=== PATIENT | female | born 1960 | race Caucasian/White ===

== ENCOUNTER 2020-03-27 17:02 | Emergency (ER) | payer BC, SELFPAY ==
[2020-03-27 17:30] VITALS: BP 149/94; PULSE 96; RESP 18; TEMP 36.7; O2SAT 98; BMI 30.9
--- NOTE | 2020-03-27 17:40 | XRR_ITS ---
PROCEDURE INFORMATION: Exam: XR Lumbosacral Spine, 2 or 3 Views Exam date and time: 03/27/2020 6:15 PM Age: 59 years old Clinical indication: Low back pain and lumbago with sciatica; Bilateral; Patient HX: C/O lbp w sciatica TECHNIQUE: Imaging protocol: XR of the lumbosacral spine, 2 or 3 views. COMPARISON: No relevant prior studies available. FINDINGS: Vertebrae: There is mild diffuse right convexity of the lumbar spine. There is anterolisthesis at L4-L5 due to facet laxity. There are no anterior wedging deformities. Lower lumbar facet arthropathy is noted. Soft tissues: Normal. XR/XR lumbar spine 2-3V* [id number] IMPRESSION: L4-L5 anterolisthesis due to facet laxity.
--- NOTE | 2020-03-27 17:42 | W.ED.BACK ---
HPI - Back Pain/Injury General: Chief Complaint: Back Pain/Injury Stated Complaint: back and hip pain Time Seen by Provider: 03/27/20 17:28 Source: patient Mode of arrival: ambulatory Limitations: no limitations History of Present Illness: HPI Narrative: 59-year-old female who has a history of chronic low back pain states she has had lumbar pain over the last week. She was seen and started on prednisone for 3 days and states that it had minimal help. States it radiates down her right hip. She states she has had back pain for years it seems to flareup at times. She denies any bowel or bladder incontinence. She states her pain is sharp in nature. MD elicited complaint: back pain Pertinent past history: prior back pain Onset (ago): day(s) Timing: constant Severity: moderate Quality: sharp Location: lumbar spine Radiation: right upper leg Exacerbating factors: movement Relieving factors: immobilization Associated symptoms: Deny abdominal pain, chills, dysuria, fever(s), nausea or vomiting Review of Systems Const: Denies: fever(s), chills, body aches or change in appetite Eyes: Denies: blurry vision or eye discomfort ENMT: Denies: throat pain or dental pain Card: Denies: chest pain Resp: Denies: dyspnea GI: Denies: abdominal pain, nausea, vomiting or diarrhea : Denies: dysuria Musc: Reports: back pain; Denies: neck pain Skin/Breast: Denies: rash Neuro: Denies: headache(s) Psych: Denies: depression Biju/Lymph: Denies: easy bruising All/Imm: Denies: urticaria PFS ED PFSH: Social History (Updated 03/23/20 @ 11:13 by Rebeca Meza LPN) Smoking and tobacco status: never smoked Physical Exam Const: COMMON NORMALS: no acute distress, patient oriented x3 and healthy appearing HENMT: COMMON NORMALS: normocephalic and atraumatic HEAD & SCALP: normocephalic and atraumatic Eye: COMMON NORMALS: Equal, round and reactive pupils present and EOMs intact bilaterally PUPIL: Yes Equal, round and reactive pupils present Neck/C-Spine: COMMON NORMALS: full ROM and supple Chest: COMMONS NORMALS: normal inspection of the chest and normal palpation of entire chest wall Resp: COMMON NORMALS: normal respiratory effort, No retractions, No use of accessory muscles and clear to auscultation bilaterally AUSCULTATION: clear to auscultation bilaterally Cardio: COMMON NORMALS: regular rate, regular rhythm and No murmurs present (Cardio) RATE: regular rate RHYTHM: regular rhythm GI: COMMON NORMALS: Normal to inspection, nondistended, normoactive bowel sounds present, Soft to palpation, non-tender and no masses PALPATION: Yes Soft to palpation Back/Pelvis: OTHER: Tenderness over right lower back with no midline tenderness. No weakness in extremities. No saddle anesthesia. Extremity: COMMON NORMALS: normal to inspection and full ROM Neuro: COMMON NORMALS: patient oriented x3, moves all extremities and no focal motor deficits Psych: COMMON NORMALS: mental status grossly normal, Normal thought process present and cooperative THOUGHT PROCESS: Normal thought process present Skin: COMMON NORMALS: no rashes or lesions noted and no wounds GENERAL SKIN EXAM: no rashes or lesions noted Course Vital Signs: Vital signs: Vital Signs Temperature 98.0 F 03/27/20 17:30 Pulse Rate 96 03/27/20 17:30 Respiratory Rate 18 03/27/20 18:17 Blood Pressure 149/94 03/27/20 17:30 Pulse Oximetry 98 03/27/20 17:30 MDM - Back Pain/Injury MDM Narrative: Medical decision making narrative: Patient presents with low back pain with sciatica. Patient has no signs of epidural abscess or cord compression. She has no saddle anesthesia. We will place her on Medrol Dosepak and have her follow-up with Dr. Patiño. She is to return if worsening. She understands and agrees to plan. Imaging Data^: X-ray lumbar spine: Attestation: I personally reviewed and interpreted this imaging study as follows: My impression: No acute abnormality Discharge Plan Discharge Patient Disposition: Home, Self-Care Clinical Impression: Low back pain with right-sided sciatica Qualifiers: Chronicity: acute Back pain laterality: right Qualified Code(s): M54.41 - Lumbago with sciatica, right side Condition: Stable Prescriptions: New Naprosyn 500 mg tablet 500 mg PO BID PRN (Reason: pain) Qty: 20 RF: 0 Medrol (Donnie) 4 mg tablets,dose pack See Rx Instructions .ROUTE .COMPLEX Qty: 21 RF: 0 No Action prednisone 20 mg tablet 20 mg PO DAILY PRNRF: 0 cyclobenzaprine 10 mg tablet 10 mg PO TID PRN (Reason: muscle spasm) Qty: 30 RF: 0 Discharge Orders: Discharge Order (Routine); Ordered 03/27/20 Ordered By: Manuelito Ovalle Referrals: Halina Robison MD [Primary Care Provider] - Ganesh Patiño MD [Physician] - 1-3 days Discharge Diet: Advance as tolerated Discharge Activity: Resume usual activity Patient Instructions: Acute Low Back Pain (ED) Coding Level of Care Code ED Telecommunication Equipment Repairer for Chg Fwd Exam Comprehensive
[2020-03-27] MEDS: predniSONE 20 mg Tablet 60 MG PO (18:16)
[2020-03-27 18:17] VITALS: RESP 18
[2020-03-27] MEDS: morphine 4 mg/mL SDV 1 mL IM (18:17)
[2020-03-27] MEDS: diazePAM 5 mg Tablet PO (19:03)
[2020-03-27 20:14] VITALS: BP 132/82; PULSE 78; RESP 18; O2SAT 98
--- NOTE | 2020-03-31 11:17 | DCPLANNER ---
Addendum entered by Jannie Miranda 04/01/20 09:41: Herminio from Dr. Castro office called child welfare caseworker, informing child welfare caseworker that a follow up appointment has been scheduled for patient for Monday, April 06, 2020 at 8:00 with Germaine Mckeon. Clinic called patient with appointment information. Original Note: television station manager had message to schedule a follow up appointment for patient with Dr. Patiño. television station manager called [facility], spoke with Coleen, gave clinic patients information. television station manager was told that patients information would be printed and given to Herminio for review. Clinic will call child welfare caseworker and patient with appointment information.
--- NOTE | 2020-04-17 12:47 | DCPLANNER ---
Patient did attend appointment scheduled for 04.06.20 with office.
== END 2020-03-27 20:16 | disposition home or self-care (01) ==
PROVIDERS: Emergency Provider Emergency Medicine; PCP Family Medicine
DX: M54.41 Lumbago with sciatica, right side (principal)
CPT/HCPCS: 12345; 72100; 96372; 99281; 99283; J2270; J7512

== ENCOUNTER 2020-04-08 13:08 | Outpatient (CLI) | payer BC, SELFPAY ==
--- NOTE | 2020-04-08 13:00 | MR_ITS ---
WS: [id number] MRI LUMBAR SPINE NONCONTRAST HISTORY: Instability and pain. COMPARISON: None available. TECHNIQUE: Sagittal and axial multisequence imaging is submitted. Mild increase in thoracic kyphosis. Facet joint arthritis at T10 encroaching upon the posterior theca l sac greatest on the RIGHT. L4 anterolisthesis by 2 mm. No acute marrow edema or fracture. Vertebral body heights are normal. No significant disc space narrowing and desiccation. Disc spaces and vertebral body heights are well-preserved. Conus terminates normally at T12. L1-L2: Normal. L2-L3: Mild annular disc bulging without stenosis. Mild ligamentum flavum hypertrophy. L3-L4: Mild annular disc bulging with ligamentum flavum hypertrophy and facet arthritis. Small amount of fluid in the LEFT facet joint. Very mild narrowing of the foramen. L4-L5: Mild annular disc bulging with ligamentum flavum hypertrophy and facet arthritis. Fluid in the facet joints bilaterally. Bilateral moderate subarticular recess stenosis and mild foraminal stenosi s. L5-S1: Very mild annular disc bulging and small osteophytes with mild facet arthritis. Very minimal e ncroachment upon the LEFT S1 nerve root in the subarticular recess. Paravertebral soft tissues are negative. MR/MR lumbar spine wo con* [id number] IMPRESSION: 1. L4 anterolisthesis by 2 mm. 2. Moderate bilateral subarticular recess stenosis and mild foraminal stenosis at L4-5. Moderate encroachment upon the L5 nerve roots. 3. Very minimal encroachment upon the LEFT S1 nerve root.
--- NOTE | 2020-04-08 14:50 | XR_ITS ---
WS: [id number] Lumbar spine with flexion, extension, and neutral lateral, 04/08/2020 Clinical Data: LOW BACK PAIN Comparison: Lumbar spine, 03/27/2020 Findings: There is a 0.5 cm anterolisthesis of L4 on L5. There is minimal anterior osteoarthritis from L3 throu gh L5. On flexion and extension there is no change in the anterolisthesis. No limitation of motion is noted. XR/XR lumbar spine f/e only [id number] Impression: 1. Anterolisthesis of L4 on L5 which does not change on flexion or extension. 2. Minimal osteoarthritic change from L3 through L5.
== END 2020-04-08 13:09 | disposition home or self-care (01) ==
LOC: RADSHAW 13:14
PROVIDERS: PCP Nurse Practitioner Family; Visit Provider Licensed Practical Nurse
DX: M54.5 Low back pain (principal); M48.061 Spinal stenosis, lumbar region without neurogenic claudication
CPT/HCPCS: 72120; 72148

== ENCOUNTER → 2020-06-02 08:33 | Outpatient (BNVA) | payer BC, SELFPAY | PROVIDERS: PCP Nurse Practitioner Family; Referring Provider Licensed Practical Nurse; Visit Provider Anesthesiology Pain Medicine | DX: M51.17 Intervertebral disc disorders with radiculopathy, lumbosacral region (principal); M47.816 Spondylosis without myelopathy or radiculopathy, lumbar region; M54.9 Dorsalgia, unspecified; M62.830 Muscle spasm of back; Z79.891 Long term (current) use of opiate analgesic | CPT/HCPCS: 99204 ==

== ENCOUNTER → 2020-06-15 12:43 | Outpatient (BNVA) | payer BC, SELFPAY | PROVIDERS: PCP Nurse Practitioner Family; Visit Provider Anesthesiology Pain Medicine | DX: M51.17 Intervertebral disc disorders with radiculopathy, lumbosacral region (principal); M54.9 Dorsalgia, unspecified; Z79.891 Long term (current) use of opiate analgesic | CPT/HCPCS: 64483; 64484; J1040; J3490 ==

== ENCOUNTER → 2020-06-29 12:41 | Outpatient (BNVA) | payer BC, SELFPAY | PROVIDERS: PCP Nurse Practitioner Family; Visit Provider Anesthesiology Pain Medicine | DX: M47.816 Spondylosis without myelopathy or radiculopathy, lumbar region (principal); M54.9 Dorsalgia, unspecified; M54.41 Lumbago with sciatica, right side | CPT/HCPCS: 64493; 64494; 64495; J3490 ==

== ENCOUNTER → 2020-07-13 10:36 | Outpatient (BNVA) | payer BC, SELFPAY | PROVIDERS: PCP Nurse Practitioner Family; Visit Provider Anesthesiology Pain Medicine | DX: M51.17 Intervertebral disc disorders with radiculopathy, lumbosacral region (principal); M47.816 Spondylosis without myelopathy or radiculopathy, lumbar region; M54.9 Dorsalgia, unspecified; M62.830 Muscle spasm of back | CPT/HCPCS: 99213 ==

== ENCOUNTER → 2020-08-03 13:57 | Outpatient (BNVA) | payer BC, SELFPAY | PROVIDERS: PCP Nurse Practitioner Family; Visit Provider Anesthesiology Pain Medicine | DX: M47.816 Spondylosis without myelopathy or radiculopathy, lumbar region (principal); M54.9 Dorsalgia, unspecified; M51.17 Intervertebral disc disorders with radiculopathy, lumbosacral region; M62.830 Muscle spasm of back | CPT/HCPCS: 64493; 64494; 64495; 99212; J1040; J3490 ==

== ENCOUNTER → 2020-08-20 10:56 | Outpatient (BNVA) | payer BC, SELFPAY | PROVIDERS: PCP Nurse Practitioner Family; Visit Provider Anesthesiology Pain Medicine | DX: M47.816 Spondylosis without myelopathy or radiculopathy, lumbar region (principal); M51.17 Intervertebral disc disorders with radiculopathy, lumbosacral region; M54.9 Dorsalgia, unspecified; M62.830 Muscle spasm of back | CPT/HCPCS: 99213; 99214 ==

== ENCOUNTER → 2020-08-24 13:46 | Outpatient (BNVA) | payer BC, SELFPAY | PROVIDERS: PCP Nurse Practitioner Family; Visit Provider Anesthesiology Pain Medicine | DX: M47.816 Spondylosis without myelopathy or radiculopathy, lumbar region (principal); M54.9 Dorsalgia, unspecified | CPT/HCPCS: 64493; 64494; 64495; J3490 ==

== ENCOUNTER → 2020-09-08 09:52 | Outpatient (BNVA) | payer BC, SELFPAY | PROVIDERS: PCP Nurse Practitioner Family; Visit Provider Anesthesiology Pain Medicine | DX: M47.816 Spondylosis without myelopathy or radiculopathy, lumbar region (principal); M51.17 Intervertebral disc disorders with radiculopathy, lumbosacral region; M54.9 Dorsalgia, unspecified; M62.830 Muscle spasm of back | CPT/HCPCS: 99212; 99213 ==

== ENCOUNTER 2020-11-04 14:05 | Outpatient (CLI) | payer BC, SELFPAY ==
--- NOTE | 2020-11-04 14:12 | MM_ITS ---
WS: [id number] BILATERAL SCREENING DIGITAL MAMMOGRAM WITH CAD HISTORY: SCREENING COMPARISON: 09/17/2014 Bilateral CC and MLO views submitted. Computer aided detection analyzed. Breast composition: The breasts are heterogeneously dense, which may obscure small masses. No suspici ous masses, microcalcifications or architectural distortion. Benign calcifications in each breast. MM/[place] [id number] IMPRESSION: BI-RADS: 2-Benign FOLLOW UP: 1 Year Follow-up
== END 2020-11-04 14:06 | disposition home or self-care (01) ==
LOC: RADSHAW 14:09
PROVIDERS: PCP Nurse Practitioner Family; Visit Provider Nurse Practitioner Family
DX: Z12.31 Encounter for screening mammogram for malignant neoplasm of breast (principal)
CPT/HCPCS: 77067

== ENCOUNTER → 2020-11-19 13:10 | Outpatient (BNVA) | payer BC, SELFPAY | PROVIDERS: PCP Nurse Practitioner Family; Visit Provider Anesthesiology Pain Medicine | DX: M54.9 Dorsalgia, unspecified (principal); M51.17 Intervertebral disc disorders with radiculopathy, lumbosacral region; M47.816 Spondylosis without myelopathy or radiculopathy, lumbar region; M62.830 Muscle spasm of back | CPT/HCPCS: 99213; 99214 ==

== ENCOUNTER → 2020-11-27 14:02 | Outpatient (BNVA) | payer BC, SELFPAY | PROVIDERS: PCP Nurse Practitioner Family; Visit Provider Anesthesiology Pain Medicine | DX: M47.816 Spondylosis without myelopathy or radiculopathy, lumbar region (principal); M54.9 Dorsalgia, unspecified | CPT/HCPCS: 64635; 64636; J1030 ==

== ENCOUNTER → 2020-12-22 12:58 | Outpatient (BNVA) | payer BC, SELFPAY | PROVIDERS: PCP Nurse Practitioner Family; Visit Provider Anesthesiology Pain Medicine | DX: M47.816 Spondylosis without myelopathy or radiculopathy, lumbar region (principal); M54.9 Dorsalgia, unspecified | CPT/HCPCS: 64635; 64636; J1030 ==

== ENCOUNTER → 2021-02-16 09:58 | Outpatient (BNVA) | payer BC, SELFPAY | PROVIDERS: PCP Nurse Practitioner Family; Visit Provider Anesthesiology Pain Medicine | DX: M54.9 Dorsalgia, unspecified (principal); M51.17 Intervertebral disc disorders with radiculopathy, lumbosacral region; M47.816 Spondylosis without myelopathy or radiculopathy, lumbar region; M62.830 Muscle spasm of back | CPT/HCPCS: 99214 ==

== ENCOUNTER → 2021-03-01 12:29 | Outpatient (BNVA) | payer BC, SELFPAY | PROVIDERS: PCP Nurse Practitioner Family; Visit Provider Anesthesiology Pain Medicine | DX: M54.16 Radiculopathy, lumbar region (principal); M54.9 Dorsalgia, unspecified; Z79.891 Long term (current) use of opiate analgesic | CPT/HCPCS: 64483; 64484; J1100; J3490 ==

== ENCOUNTER → 2021-03-11 08:44 | Outpatient (BNVA) | payer BC, SELFPAY | PROVIDERS: PCP Nurse Practitioner Family; Visit Provider Anesthesiology Pain Medicine | DX: M51.17 Intervertebral disc disorders with radiculopathy, lumbosacral region (principal); M47.816 Spondylosis without myelopathy or radiculopathy, lumbar region; M54.9 Dorsalgia, unspecified; M62.830 Muscle spasm of back | CPT/HCPCS: 99214 ==

== ENCOUNTER → 2021-04-21 10:25 | Outpatient (BNVA) | payer BC, SELFPAY | PROVIDERS: PCP Nurse Practitioner Family; Visit Provider Anesthesiology Pain Medicine | DX: M79.18 Myalgia, other site (principal); M25.552 Pain in left hip; M51.17 Intervertebral disc disorders with radiculopathy, lumbosacral region; M47.816 Spondylosis without myelopathy or radiculopathy, lumbar region; M54.9 Dorsalgia, unspecified | CPT/HCPCS: 20553; 99214; J1030; J3490 ==

== ENCOUNTER → 2021-05-06 10:54 | Outpatient (BNVA) | payer BC, SELFPAY | PROVIDERS: PCP Nurse Practitioner Family; Visit Provider Orthopaedic Surgery | DX: Z01.812 Encounter for preprocedural laboratory examination (principal); Z20.822 Contact with and (suspected) exposure to COVID-19 | CPT/HCPCS: 87635 ==

== ENCOUNTER 2021-05-10 05:48 | Day surgery (SDC) | payer BC, SELFPAY ==
[2021-05-06 12:21] VITALS: BMI 31.3
--- NOTE | 2021-05-06 12:55 | ANES.PREANE2 ---
Pre-Anesthetic Assessment Pre-Anesthetic Assessment: Height/Weight: Height 1.6 m Weight 80.286 kg Proposed Procedure: Operation Date: 05/10/21 14:40 Proposed Procedures p Lumbar Spine Decompression 56997 M43.10(Not Applicable) - Rafita Pierre, DO Was Beta Luna taken within 24 hours: N/A Was Clonidine taken within 24 hours: N/A Social: Social History: No alcohol and No tobacco Exam: Pre-Anes Outpt Exam: alert, oriented x 3, clear to auscultation bilaterally and regular rate & rhythm Airway: Submandibular: WNL Cervical ROM: WNL MP: 2 Pulmonary: Pulmonary: None reported CV/HEM: CV/HEM: None reported : : None reported Hepatic: Hepatic: None reported GI: GI: None reported Metabolic: Metabolic: None reported Musc/skel: Musc/skel: Lower Back Pain Comments: LBP radiating to left leg Neuropsych: Neuropsych: None reported Anesthetic Plan: ASA status: 2 Anesthesia: General Other: Patient had protracted sore throat and difficulty with swallowing following anesthesia for oupatient surgery. Discussed using glidescope with staff and patient. PFSH Anesthesia PFSH: Medical History Intervertebral disc disorder with radiculopathy of lumbosacral region Joint instability Surgical History History of eye surgery lens replacement; left eye Dr. Seals, then laser surgery to remove scar tissue History of hysterectomy Family History Mother CAD (coronary artery disease) Breast cancer Aneurysm Sister Aneurysm Social History Smoking and tobacco status: never smoked Second hand smoke exposure: No Alcohol intake: never Household members: spouse Marital status: Current occupational status: employed Current occupation: cosmotology History of recent travel: No Data Anesthesia Cardiac Studies: No Data to Display
[2021-05-10] VITALS (9 sets, daily range): BP systolic 123–157; BP diastolic 68–100; PULSE 60–84; RESP 12–19; TEMP 36.1–36.9; O2SAT 96–100
--- NOTE | 2021-05-10 | SCC_ITS ---
Procedure Done: 1. Bilateral L4/5 laminectomy with partial facetectomy 9.0 seconds of fluoroscopic guidance, for a cumulative dose of 2.34 mGy, was provided to Dr. Pierre by the radiology department. C-arm images of the lumbar spine were saved for the patient's permanent record. [facility]
[2021-05-10] MEDS: sodium chloride 0.9% 1,000 ML 30 ML IV (06:25)
--- NOTE | 2021-05-10 06:40 | PM.HP ---
Providers/Chief Complaint Primary Care Provider: KHADRA Avina Chief Complaint: sponylolthesis lumbar History of Present Illness Viktoria Cosby is a 60 year old female low back pain. Onset: [gradually worsen over time] Duration: [years] Characteristics: [sharp] Severity: [moderate] Location: [left side low back] Radiating symptoms: [left lateral thigh and posterior lower leg] Aggravating factors: [standing, walking, bending] Alleviating factors: [sitting, heat] Neuro deficits: denies numbness, tingling, weakness, incontinence of bowel/bladder, saddle anesthesia. Prior tx: [pain management for injection and nerve ablations, formal PT, oral anti-inflammatories, muscle relaxers, narcotic pain medication] Review of Systems Narrative: Const: Denies: fever(s) or chills Card: Denies: chest pain or dyspnea on exertion Resp: Denies: dyspnea or productive cough GI: Denies: abdominal pain, nausea or vomiting : Denies: difficulty voiding Musc: Reports: back pain, extremity pain and limited range of motion Skin/Breast: Denies: changes in skin color or dry skin Neuro: Denies: numbness in extremities or weakness in extremities Psych: Denies: anxiety Biju/Lymph: Denies: easy bruising or easy bleeding Medications/Allergies Home Medications Medication Instructions Recorded Confirmed Last Taken Type ibuprofen 200 mg tablet 300 mg PO .2 Q 4 hours PRN tab 11/27/20 05/10/21 05/10/21 04:50 History tizanidine 4 mg tablet 4 mg PO BID PRN #60 tab 04/21/21 05/10/21 05/09/21 Rx Allergies Allergy/AdvReac Type Severity Reaction Status Date / Time No Known Allergies Allergy Verified 05/10/21 06:12 PFSH Acute PFSH: Medical History Intervertebral disc disorder with radiculopathy of lumbosacral region Joint instability Surgical History History of eye surgery lens replacement; left eye Dr. Seals, then laser surgery to remove scar tissue History of hysterectomy Family History Mother CAD (coronary artery disease) Breast cancer Aneurysm Sister Aneurysm Social History Smoking and tobacco status: never smoked Second hand smoke exposure: No Alcohol intake: never Household members: spouse Marital status: Current occupational status: employed Current occupation: cosmotology History of recent travel: No Vitals/I&O/Wt Last Vital Signs Temp 98.4 F 05/10/21 06:13 Pulse 65 05/10/21 06:13 Resp 18 05/10/21 06:13 BP 141/68 05/10/21 06:13 Pulse Ox 96 05/10/21 06:13 Physical Exam Narrative: EXAM NARRATIVE: EXAM NARRATIVE: CONSTITUTIONAL: The patient is normal appearing, well groomed, cooperative and in no apparent distress. GENERAL: Patient in no acute distress. Well nourished. CARDIAC: Regular rate and rhythm. CHEST: Normal inspirator effort, normal respiratory rate. ABDOMEN: Soft and non-tender. SKIN: Clear, warm and intact. NEURO?PSYCH: The patient is alert and oriented to person, place and time. NEUROVASCULAR: Upper Extremity Sensory - SILT. Motor Strength: Shoulder abduction C5: 5/5; Wrist extension C6: 5/5; Elbow extension C7: 5/5; Hand Opto Mechanical Technician C8: 5/5; Finger abduction T1: 5/5. Radial/ Ulnar/ Median in intact Lower Extremity Sensory - SILT. Motor Strength: Hip flexion L2/3; Ant/inner thigh: 5/5; Hip adduction L2/3: 5/5; Knee extension L4 Lat thigh: 5/5; Toe dorsiflexion L5: 5/5; Ankle dorsiflexion L5/ S1: 5/5; Plantar flexion S1: 5/5. DTR: Triceps 2+; Brachioradialis 2+; Patellar 2+; Achilles 2+. MUSCULOSKELETAL: UPPER EXTREMITIES: The patient had full active ROM in fingers, wrist, elbow, and shoulder. The patient demonstrated ability to fully flex/extend/abduct/adduct fingers, make ok sign, cross 2nd/3rd digits, extend 1st digit fully.. Radial pulse 2+, CR<2 seconds. LOWER EXTREMITIES: Pt has full, active ROM of toes, ankle, knee, and hip. Dorsalis pedis & posterior tibialis pulses 2+, CR<2 seconds. SPINE: Skin warm, dry, intact. A&P Assessment and plan (1) Spondylosis of lumbar spine: MIS decompression Status: Acute Attestations Medical Necessity Statement*: failed conservative tx Coding Level of Care Code Acute Cigar Head Piercer for Chg Fwd Diagnoses Spondylosis of lumbar spine M47.816
--- NOTE | 2021-05-10 07:37 | P.ANESUD_ITS ---
Pre-Anesthetic Update Pre-Anesthetic Assessment: Date of Surgery/Procedure: 05/10/21 Preop Anabel gnosis: Lumbar stenosis Proposed Procedure: Operation Date: 05/10/21 07:00 Proposed Procedures p Lumbar Spine Decompression 59668 M43.10(Not Applicable) - Rafita Pierre, DO Any changes to Pre-Anesthetic Assessment?: No Last Intake: Intake Last Liquid Date 05/09/21 Last Liquid Time 22:00 Last Solid Date 05/09/21 Last Solid Time 19:30 Vitals: Temperature 98.4 F 05/10/21 06:13 Pulse Rate 65 05/10/21 06:13 Respiratory Rate 18 05/10/21 06:13 Blood Pressure 141/68 05/10/21 06:13 Blood Pressure April n 92 05/10/21 06:13 Pulse Oximetry 96 05/10/21 06:13 Oxygen Delivery Me thod 05/10/21 06:13 Exam: Pre-Anes Outpt Exam: alert, oriented x 3, clear to auscultation bilaterally and regular rate & rhythm Other Pertinent Information: Other Pertinent Information: Patient with h/o really sore throat following outpatient procedure, not a known difficult airway and exam is good. Cardiac Studies: No Data to Display
--- NOTE | 2021-05-10 08:07 | PM.OP ---
Operative Report Date of procedure: May 10, 2021 Pre-op Diagnosis: Lumbar stenosis Post-op diagnosis: same Procedure Done: 1. Bilateral L4/5 laminectomy with partial facetectomy Surgeon: Rafita Pierre Anesthesia: General Estimated blood loss (mL): 5 Condition: stable Disposition: PACU Procedure: Patient is brought to the operative suite. After undergoing anesthesia they are placed in the supine position. All areas of impingement are well padded. Patient is then prepped and draped in the normal sterile fashion. A skin incision is made over the L4/5 level. This is confirmed under c-arm guidance. A series of dilators are passed and the tubular retractor is docked on the L4 lamina. A bovie is used to clear the soft tissue off the lamina and the L 4/5 facet joint. A high speed suni is then used to perform the laminectomy and take down the medial aspect of the L 4/5 facet joint. A kerrison rongeure was then used to take down the remaining lamina and smooth the edged of the laminectomy up to the point where the ligamentum flavum attaches. Attention was then brought to the medial aspect of the facet joint. The remaining medial aspect of the superior and inferior aspect of the facet joint were taken down with the kerrison from the pedicle of L4 to L 5. The facet joint had significant hypertrophy. Attention was then brought to the Ligamentum Flavum. The ligament was taken down from the lamina of L4 to L5 and out medially to the remaining facet joint. The ligament was thick. The dura was then exposed. The dura was in good repair. The L4 nerve was then traced with a curette out the L4/5 foramen and found to be adequately decompressed. The L5 nerve was traced with a curette around the L5 pedicle. The lateral recess was opened with a kerrison helping to further decompress the L5 nerve. The tubular retractor was then tilted to the contralateral side. The bovie was used to take down the soft tissue on the spinous process. The high speed suni was used to take down the spinous process and then the contralateral lamina of L4. The kerrison rongeur was used to take down the remaining lamina to the point where the ligamentum flavum attached and the ligamentum flavum was taken down from L4 to L5. The kerrison rongeur was then used to reach across and take down the medial aspect of the contralateral L4/5 facet joint.The currete was used to trace the contralateral L4 nerve out the L4/5 foramen to make sure it was decompressed adequatesly and the L5 was traced around the L5 pedicle. The lateral recess was opened further with the kerrison to ensure the L5 is adequately decompressed. Wound is then irrigated copiously with saline and surgiflo is used to stop any bleeding. The tubular retractor is removed and the wound is closed with vicryl and monocryl suture. Glue is then used to protect the wound. A sterile dressing is then placed. Patient was then placed in the supine position and transferred to the PACU in stable condition.
[2021-05-10] MEDS: fentaNYL 50 mcg/mL INJ 2mL IVP (08:14)
--- NOTE | 2021-05-10 08:16 | XR_ITS ---
WS: [id number] INTRAOPERATIVE TECHNIQUE: 2 Spot fluoroscopic images for intraoperative purposes. FLUOROSCOPY TIME: 9.0 seconds CLINICAL INFORMATION: OR PICS COMPARISON: None. FINDINGS: Localization marker projected over the L4-L5 interspace XR/XR lumbar spine 1V [id number] IMPRESSION: Images obtained for intraoperative purposes.
--- NOTE | 2021-05-10 08:18 | P.PCN_ITS ---
PACU note PACU note: VSS, Good respiratory effort, report to BACKEND TESTER Post-Anesthesia Exam: awake
--- NOTE | 2021-05-10 08:18 | PM.PACU ---
PACU note PACU note: VSS, Good respiratory effort, report to CREDIT COLLECTIONS REP Post-Anesthesia Exam: awake
--- NOTE | 2021-05-10 08:26 | SUR.PHASEI ---
pt awake alert on RA , sats 99% see pain med given earlier for patient c/o of pain to incision site, pt moves bilat feet to command, VSS IV patent.
--- NOTE | 2021-05-10 08:49 | SUR.PHASEI ---
0811 pt to pacu awake alert , temp 97, pt denies cold but given 3 warm blankets to prevent shaking, vss.
[2021-05-10] MEDS: HYDROcodone-acetaminophen 5-325 mg Tablet 1 TAB PO (08:51)
--- NOTE | 2021-05-10 17:07 | ANE.PACU2 ---
Inpatient post-anesthesia follow up: Airway intact: Yes Vital signs: Temperature 97.1 F Pulse Rate 64 Respiratory Rate 18 Blood Pressure 139/88 Pulse Oximetry 98 Oxygen Delivery Me thod Room Air Oxygen Flow Rate Fraction of Inspir ed Oxygen Hydration adequate: Yes Nausea and vomiting: No Pain level: 2 Mental status: Baseline
== END 2021-05-10 09:34 | disposition home or self-care (01) ==
PROVIDERS: PCP Nurse Practitioner Family; Visit Provider Orthopaedic Surgery
PROC: (CPT 63005; principal; 2021-05-10 07:00)
DX: M48.061 Spinal stenosis, lumbar region without neurogenic claudication (principal); Z82.49 Family history of ischemic heart disease and other diseases of the circulatory system; Z80.3 Family history of malignant neoplasm of breast
CPT/HCPCS: 63047; 72020; 76000; 96365; J0690; J2405; J2704; J2710; J3010; J3490; J7030

== ENCOUNTER → 2021-05-20 10:52 | Outpatient (BNVA) | payer BC, SELFPAY | PROVIDERS: PCP Nurse Practitioner Family; Visit Provider Anesthesiology Pain Medicine | DX: M51.17 Intervertebral disc disorders with radiculopathy, lumbosacral region (principal); M47.816 Spondylosis without myelopathy or radiculopathy, lumbar region; M79.604 Pain in right leg; M25.559 Pain in unspecified hip; M62.830 Muscle spasm of back; Z79.891 Long term (current) use of opiate analgesic | CPT/HCPCS: 99214 ==

== ENCOUNTER 2021-07-15 06:00 | Outpatient (RCR) | payer BC, SELFPAY | END 2021-07-29 23:59 | disposition home or self-care (01) | LOC: SPT 06:00 | PROVIDERS: PCP Nurse Practitioner Family; Referring Provider Orthopaedic Surgery; Visit Provider Orthopaedic Surgery | DX: Z47.89 Encounter for other orthopedic aftercare (principal) | CPT/HCPCS: 97110; 97162 ==

== ENCOUNTER → 2021-07-22 13:12 | Outpatient (BNVA) | payer BC, SELFPAY | PROVIDERS: PCP Nurse Practitioner Family; Visit Provider Anesthesiology Pain Medicine | DX: G89.29 Other chronic pain (principal); M51.17 Intervertebral disc disorders with radiculopathy, lumbosacral region; M47.816 Spondylosis without myelopathy or radiculopathy, lumbar region; M25.559 Pain in unspecified hip; M62.830 Muscle spasm of back; Z79.891 Long term (current) use of opiate analgesic | CPT/HCPCS: 99214 ==

== ENCOUNTER 2021-07-30 06:00 | Outpatient (RCR) | payer BC, SELFPAY | END 2021-08-29 23:59 | disposition home or self-care (01) | LOC: SPT 06:00 | PROVIDERS: PCP Nurse Practitioner Family; Referring Provider Orthopaedic Surgery; Visit Provider Orthopaedic Surgery | DX: M54.2 Cervicalgia (principal) | CPT/HCPCS: 97110 ==

== ENCOUNTER → 2021-08-19 13:55 | Outpatient (BNVA) | payer BC, SELFPAY | PROVIDERS: PCP Nurse Practitioner Family; Visit Provider Anesthesiology Pain Medicine | DX: G89.29 Other chronic pain (principal); M51.17 Intervertebral disc disorders with radiculopathy, lumbosacral region; M47.816 Spondylosis without myelopathy or radiculopathy, lumbar region; M25.559 Pain in unspecified hip; M79.604 Pain in right leg; M54.2 Cervicalgia; M62.830 Muscle spasm of back; Z79.891 Long term (current) use of opiate analgesic | CPT/HCPCS: 99213 ==

== ENCOUNTER 2021-08-30 06:00 | Outpatient (RCR) | payer BC, SELFPAY | END 2021-09-28 23:59 | disposition home or self-care (01) | LOC: SPT 06:00 | PROVIDERS: PCP Nurse Practitioner Family; Visit Provider Orthopaedic Surgery | DX: Z98.890 Other specified postprocedural states (principal); M54.2 Cervicalgia | CPT/HCPCS: 97110 ==

== ENCOUNTER → 2021-09-16 15:01 | Outpatient (BNVA) | payer BC, SELFPAY | PROVIDERS: PCP Nurse Practitioner Family; Visit Provider Anesthesiology Pain Medicine | DX: G89.29 Other chronic pain (principal); M51.17 Intervertebral disc disorders with radiculopathy, lumbosacral region; M47.816 Spondylosis without myelopathy or radiculopathy, lumbar region; M47.812 Spondylosis without myelopathy or radiculopathy, cervical region; M62.830 Muscle spasm of back; M79.604 Pain in right leg; M79.605 Pain in left leg; Z79.891 Long term (current) use of opiate analgesic | CPT/HCPCS: 99214 ==

== ENCOUNTER 2021-09-16 15:27 | Outpatient (CLI) | payer BC, SELFPAY ==
--- NOTE | 2021-09-16 15:42 | XR_ITS ---
WS: [id number] CERVICAL SPINE 5 VIEWS HISTORY: M47.812 - Spondylosis without myelopathy or radiculopathy... COMPARISON: 09/16/2008. AP and lateral views. Lateral in neutral, flexion and extension. Straightening of the normal cervical lordosis. Posterior retrolisthesis of C5 by 4 mm similar to the prior study. With flexion and extension no significant instability. Disc space narrowing throughout t he cervical spine. Facet joints are narrowed also. Facet joint arthritis is noted bilaterally from C3 -4 to C6-7. Partial fusion across the disc at C6-7 is suspected. Lateral masses are aligned odontoid is intact. Soft tissues are normal. XR/XR cervical spine 4-5V [id number] IMPRESSION: 1. Advanced cervical spondylosis as described above. 2. Bilateral facet joint arthritis, most significant from C3-4 through C6-7.
== END 2021-09-16 15:28 | disposition home or self-care (01) ==
PROVIDERS: Visit Provider Anesthesiology Pain Medicine
DX: M47.812 Spondylosis without myelopathy or radiculopathy, cervical region (principal)
CPT/HCPCS: 72050

== ENCOUNTER → 2021-10-05 14:05 | Outpatient (BNVA) | payer BC, SELFPAY | PROVIDERS: PCP Nurse Practitioner Family; Visit Provider Anesthesiology Pain Medicine | DX: M51.17 Intervertebral disc disorders with radiculopathy, lumbosacral region (principal); Z79.891 Long term (current) use of opiate analgesic | CPT/HCPCS: 64483; 64484; J1100; J3490 ==

== ENCOUNTER 2021-10-22 15:41 | Emergency (ER) | payer BC, SELFPAY ==
[2021-10-22 15:51] VITALS: BP 158/106; PULSE 78; RESP 16; TEMP 36.4; O2SAT 97
--- NOTE | 2021-10-22 15:56 | ED_ITS ---
HPI - COVID General: Chief Complaint: COVID symptoms Stated Complaint: sore throat, fever, sob bad h/a Time Seen by Provider: 10/22/21 15:56 Triage information: Has fever, cough or shortness of breath . No known COVID + exposure last 14 days History of Present Illness: HPI Narrative: Ms. Cosby is a 60-year-old lady without significant past medical history presents to the emergency department due to headache and concern for Covid. She endorses 1 day history of symptoms that was gradual in onset. She endorses frontal headache which feels like pressure. This is not the worst headache of her life and there is no asso ciated neurologic symptoms. Additionally she has mild shortness of breath, cough, and chest heaviness. Overall intensity symptoms is mild to moderate. Course has persisted. No other specific changes in health, exacerbating, relieving factors identified. COVID Results: Nasal/Oral Coronavirus 2019 PCR Not detected 05/06/21 10:54 05/06/21 Review of Systems General: Reports: 10 or more systems reviewed and unremarkable except in HPI and below PFSH ED PFSH: Medical History Intervertebral disc disorder with radiculopathy of lumbosacral region Joint instability Surgical History History of eye surgery lens replacement; left eye Dr. Seals, then laser surgery to remove scar tissue History of hysterectomy Family History Mother CAD (coronary artery disease) Breast cancer Aneurysm Sister Aneurysm Social History Second hand smoke exposure: No Alcohol intake: never Household members: spouse Marital status: Current occupational status: employed Current occupation: [employer] History of recent travel: No Physical Exam Narrative: EXAM NARRATIVE: GENERAL/CONSTITUTIONAL -mildly ill-appearing. Eyes -no scleral icterus, no conjunctival injection ENMT - Atraumatic external nose and ears. Moist mucous membranes NECK - supple. trachea midline CARDIOVASCULAR - regular rate and rhythm. Normal peripheral perfusion RESPIRATORY -coarse to auscultation bilaterally. Cough present. No retractions or accessory muscle use. ABDOMEN/GI - Nontender/Nondistended. MSK - Extremities without obvious deformity or tenderness to palpation SKIN - Warm, Dry NEURO - alert and appropriately oriented. No focal neurologic deficits appreciated. No red flag symptoms regarding headache. Moves all extremities equally. Course ED course: - Patient was seen and evaluated by me at bedside - Patient placed on cardiac monitors, IV access obtained - Initial evaluation notable for exam as above -Symptom treatment ordered - Labs notable for negative Covid testing - Imaging notable for no acute finding - Upon serial reexamination after treatment the patient was improved with additional treatment - Based on patient history, evaluation, labs, and imaging as interpreted the most likely cause of the patient's condition is viral syndrome - The results of ED evaluation were discussed with the patient including p rescriptions and/or symptomatic cares (if applicable) including appropriate and responsible use, followup plan, and return precautions. The patient verbalized understanding and felt safe for discharge. - Patient discharged in satisfactory condition. Vital Signs: Vital signs: Vital Signs Temperature 97.6 F 10/22/21 15:51 Pulse Rate 84 10/22/21 18:41 Respiratory Rate 17 10/22/21 18:41 Blood Pressure 140/88 10/22/21 18:41 Pulse Oximetry 99 10/22/21 18:41 MDM - COVID Medical Records: Attestation: I reviewed the patient's medical records. Lab Data: Attestation: I reviewed the patient's lab results. Labs: Lab Results 10/22/21 16:12 Coronavirus 229E ( PCR) Not detected (NOT DETECT) SARS-CoV-2 (PCR) Not detected (NOT DETECT) EKG Data: EKG 1: Attestation: I personally reviewed and interpreted this EKG as follows: EKG interpretation date: 10/22/21 EKG interpretation time: 16:32 Interpretation: Twelve-lead EKG shows a regular rhythm at a rate of 69. WI interval 180, QRS duration 93, QTc 441. Left axis deviation. Interpretation: Sinus rhythm. Nonspecific ST segment abnormality COVID Results: Nasal/Oral Coronavirus 2019 PCR Not detected 05/06/21 10:54 05/06/21 Discharge Plan Discharge Patient Disposition: Home Clinical Impression: Headache, Chest congestion Condition: Stable Prescriptions: No Action dexamethasone sodium phosphate 4 mg/mL solution 4 mg intra-articular ONCE Qty: 1 RF: 0 lidocaine (PF) 10 mg/mL (1 %) solution 10 mg intra-articular ONCE Qty: 2 RF: 0 ropivacaine (PF) 5 mg/mL (0.5 %) solution 2 ml intra-articular ONCE Qty: 2 RF: 0 tizanidine 4 mg tablet 4 mg PO BID PRN (Reason: muscle spasticity) Qty: 60 RF: 0 celecoxib 200 mg capsule 200 mg PO BID Qty: 60 RF: 1 gabapentin 100 mg capsule 100 mg PO BID Qty: 60 RF: 0 ibuprofen 200 mg tablet 300 mg PO .2 Q 4 hours PRN (Reason: Pain) RF: 0 Discharge Orders: Discharge ED (Routine); Ordered 10/22/21 Ordered By: Naveen Khoury Discharge Diet: Usual diet Discharge Activity: Resume usual activity Patient Instructions: Acute Headache (ED), Cold Symptoms (ED) Activity Restrictions/Additional Instructions: Thank you for visiting the emergency department. You were seen and evaluated for headache and congestion. The exact cause of your symptoms is unclear though likely related to minor viral or other congestive syndrome. Please follow-up with your primary care provider. Return to the emergency department for worsening symptoms or anything else that you are concerned about and feel needs emergency department evaluation. Coding Level of Care Code ED Equipment Monitor Phototypesetting for Jaquelin Mitchell
[2021-10-22 16:05] VITALS: O2SAT 98
--- NOTE | 2021-10-22 16:07 | ECG_ITS ---
[facility] Test Date: 2021-10-22 Pat Name: Viktoria Cosby Department: Room: Gender: Female [employer]ic: : [id number] Requested By: Naveen Khoury Order Number: [id number] Justine MD: Karma Maher M.D. Measurements Intervals [place] Rate: 69 P: 52 ND: 180 QRS: -11 QRSD: 93 T: 28 QT: 422 QTc: 453 Interpretive Statements SINUS RHYTHM POSSIBLE LEFT ATRIAL ENLARGEMENT [-0.1mV P-WAVE IN V1/V2] No previous ECG available for comparison Electronically Signed On 10-23-2021 17:13:59 ARTIFICIAL INSEMINATOR by Karma Maher M.D. [id number]
--- NOTE | 2021-10-22 16:07 | XRR_ITS ---
PROCEDURE INFORMATION: Exam: XR Chest Exam date and time: 10/22/2021 4:07 PM Age: 60 years old Clinical indication: Cough TECHNIQUE: Imaging protocol: XR of the chest. Views: 1 view. Total images: 1 COMPARISON: CR XR cervical spine 4-5V [id number] 09/16/2021 4:05 PM FINDINGS: Lungs: No visible active interstitial or alveolar airspace disease. Pleural spaces: No pleural effusion. No pneumothorax. Heart/Mediastinum: Cardiac structures and configuration within normal limits. Bones/joints: Scoliotic curvature of the spine. XR/XR chest 1V portable [id number] IMPRESSION: Nonacute.
[2021-10-22] MEDS: acetaminophen 500 mg Tablet 1000 MG PO (16:41)
[2021-10-22] MEDS: ketorolac 30 mg/mL INJ IM (16:41)
[2021-10-22 18:19] LABS: Adenovirus Not Detected (NOT DETECT); Chlamydia Pneumoniae Not Detected (NOT DETECT); Coronavirus 229E,HKU1,NL63,OC4 Not Detected (NOT DETECT); Human Metapneumovirus Not Detected (NOT DETECT); Human Rhinovirus/Enterovirus Not Detected (NOT DETECT); Influenza A Not Detected (NOT DETECT); Influenza A H1 Not Detected (NOT DETECT); Influenza A H1-2009 Not Detected (NOT DETECT); Influenza A H3 Not Detected (NOT DETECT); Influenza B Not Detected (NOT DETECT); Mycoplasma Pneumoniae Not Detected (NOT DETECT); Parainfluenza Virus Type 1 Not Detected (NOT DETECT); Parainfluenza Virus Type 2 Not Detected (NOT DETECT); Parainfluenza Virus Type 3 Not Detected (NOT DETECT); Parainfluenza Virus Type 4 Not Detected (NOT DETECT); Respiratory Syncytial Virus A Not Detected (NOT DETECT); Respiratory Syncytial Virus B Not Detected (NOT DETECT); SARS-COV-2 Not Detected (NOT DETECT)
[2021-10-22 18:41] VITALS: BP 140/88; PULSE 84; RESP 17; O2SAT 99
== END 2021-10-22 18:42 | disposition home or self-care (01) ==
PROVIDERS: Emergency Provider Emergency Medicine
DX: R51.9 Headache, unspecified (principal); R09.89 Other specified symptoms and signs involving the circulatory and respiratory systems; Z20.822 Contact with and (suspected) exposure to COVID-19
CPT/HCPCS: 71045; 87635; 93005; 96372; 99283; J1885

== ENCOUNTER 2025-07-21 12:57 | Outpatient (CLI) | payer MEDICARE, SELFPAY ==
--- NOTE | 2025-07-21 13:06 | XR_ITS ---
WS: [id number] DEXA (DUAL ENERGY X-RAY ABSORPTIOMETRY) Bone mineral density was performed using a Explorer.io machine. HISTORY: OSTEOPOROSIS COMPARISON: None available. Lumbar spine BMD (L1-L4): 1.318 g/cm2 T score: 1.2 Z score: 2.2 Total hip BMD: Left: 1.061 g/cm2. T score: 0.4 Z score: 1.2 Right: 1.005 g/cm2. T score: 0.0 Z score: 0.8 10 year probability of a major osteoporotic fracture is 14.3%. XR/XR DEXA axial skeleton* [id number] IMPRESSION: NORMAL BONE MINERAL DENSITY based upon the WHO classification for females.
== END 2025-07-21 12:58 | disposition home or self-care (01) ==
LOC: RAD 12:59
PROVIDERS: PCP Nurse Practitioner Family; Visit Provider Nurse Practitioner Family
DX: Z13.820 Encounter for screening for osteoporosis (principal); M81.0 Age-related osteoporosis without current pathological fracture
CPT/HCPCS: 77080